=== PATIENT | male | born 1960 | race Caucasian/White ===

== ENCOUNTER 2016-08-11 07:01 | Day surgery (SDC) | payer MEDICARE, MEDICAID ==
[2016-08-10 13:42] LABS: ASPARTATE AMINO TRANSFERASE 17 U/L (15-37); BLOOD UREA NITROGEN 16 mg/dL (7-18)
[~2016-08-11] VITALS: Ht 188 cm; Wt 154.6 kg
[~2016-08-11 07:01] MED LIST: ACET325T14 PO; AMIO200T42 PO; APIX5TAB PO; CHLO25TA PO; ERGO500017 PO; FURO40TA6 PO; LISI5TAB7 PO; MAGN64TA9 PO; MELO-184 PO; METO-99 PO; METO25TA35 PO; METO50TA82 PO; POTA20PA8 PO; POTA20TA89 PO; SIMV20TA3 PO
[2016-08-11] MEDS ORDERED: SODIUM CHLORIDE 0.9% 1,000 ML IV SCH (07:14)
[2016-08-11 07:17] VITALS: BP 127/83
[2016-08-11] MEDS ORDERED: FENTANYL PF 250 MCG/5ML ONE ×2 (07:22→09:46)
[2016-08-11] MEDS ORDERED: MIDAZOLAM 1 MG/ML, 5ML ONE (07:22)
[2016-08-11] MEDS ORDERED: LIDOCAINE 2%, 20ML ONE (08:21)
[2016-08-11] MEDS ORDERED: ISOPROTERENOL 0.2MG/ML, 5ML ONE (08:21)
[2016-08-11] MEDS ORDERED: HEPARIN 1,000 UNITS/ML, 10ML ONE (08:21)
[2016-08-11] MEDS ORDERED: HYDROmorphone 1 MG/ML, 1ML IV PRN (11:00)
[2016-08-11] MEDS ORDERED: ACETAMINOPHEN 325 MG TABLET PO PRN (11:00)
[2016-08-11] MEDS ORDERED: OXYcodone 5 MG/5 ML ORAL.SOL UDC PO PRN (11:00)
[2016-08-11] MEDS ORDERED: FENTANYL PF 100 MCG/2ML IV PRN (11:00)
[2016-08-11] MEDS ORDERED: ONDANSETRON 2MG/ML, 2ML IVPush PRN (11:00)
[2016-08-11] MEDS ORDERED: MIDAZOLAM 1 MG/ML, 2ML IV PRN (11:00)
[2016-08-11] MEDS ORDERED: MEPERIDINE/PF 25MG/0.5ML IVPush PRN (11:00)
[2016-08-11] MEDS ORDERED: FENTANYL PF 100 MCG/2ML ONE (11:26)
[2016-08-11] MEDS ORDERED: OXYcodone 5 MG/5 ML ORAL.SOL UDC ONE (11:26)
[2016-08-11] MEDS ORDERED: DEXAMETHASONE 4 MG/ML, 1ML ONE (15:23)
[2016-08-11] MEDS ORDERED: SUCCINYLCHOLINE 20 MG/ML, 10ML ONE (15:23)
[2016-08-11] MEDS ORDERED: PROPOFOL 10 MG/ML, 20ML ONE (15:23)
[2016-08-11] MEDS ORDERED: ROCURONIUM 10 MG/ML ONE (15:23)
[2016-08-11] MEDS ORDERED: ONDANSETRON 2MG/ML, 2ML ONE (15:23)
== END 2016-08-11 15:12 | disposition home or self-care (01) ==
LOC: OUT 07:01
PROVIDERS: ATTEND Internal Medicine Cardiovascular Disease
DX: I48.3 Typical atrial flutter (principal); I48.91 Unspecified atrial fibrillation; I42.9 Cardiomyopathy, unspecified; E66.9 Obesity, unspecified; Z68.41 Body mass index [BMI] 40.0-44.9, adult; I11.0 Hypertensive heart disease with heart failure; I50.9 Heart failure, unspecified; E78.5 Hyperlipidemia, unspecified; G47.30 Sleep apnea, unspecified
CPT/HCPCS: 36415; 71020; 80053; 85025; 85610; 85730; 93005; 93613; 93621; 93653; C1730; C1731; C1732; C1766; C1894; J0330; J1100; J2250; J2405; J2704; J3010; J3490; J1644

== ENCOUNTER 2016-10-13 09:32 | Emergency (ER) | payer MEDICARE, MEDICAID ==
[~2016-10-13] VITALS: Ht 188 cm; Wt 168.0 kg
[2016-10-13] MEDS ORDERED: POTA10TA PO (09:53)
[2016-10-13] MEDS ORDERED: SODIUM CHLORIDE 0.9% 1,000ML IVBOLUS ONE (10:00)
[2016-10-13] MEDS ORDERED: SODIUM CHLORIDE FLUSH 10ML SYR IVF ONE (10:00)
[2016-10-13] MEDS ORDERED: PLEASE ENTER HEIGHT AND WEIGHT MC SCH (10:00)
[2016-10-13 10:01] LABS: ASPARTATE AMINO TRANSFERASE 25 U/L (15-37); BLOOD UREA NITROGEN 15 mg/dL (7-18)
[2016-10-13 10:04] LABS: IS PT STATUS REG ER OR PRE ER? YES
[2016-10-13 10:46] VITALS: BP 118/78
== END 2016-10-13 11:35 | disposition home or self-care (01) ==
LOC: ED 09:58
DX: I48.2 Chronic atrial fibrillation (principal); I11.0 Hypertensive heart disease with heart failure; I50.9 Heart failure, unspecified
CPT/HCPCS: 36415; 71010; 80053; 83880; 84484; 85025; 85610; 93005; 96360; 96361; 99285; J7030

== ENCOUNTER 2016-10-14 09:43 | Day surgery (SDC) | payer MEDICARE, MEDICAID ==
[2016-10-13 11:27] VITALS: BP 142/56
[~2016-10-14] VITALS: Ht 188 cm; Wt 154.6 kg
[~2016-10-14 09:43] MED LIST changes: +POTA10TA PO
[2016-10-14] MEDS ORDERED: SODIUM CHLORIDE 0.9% 1,000 ML IV SCH (10:52)
[2016-10-14] MEDS ORDERED: FENTANYL PF 250 MCG/5ML ONE (11:21)
[2016-10-14] MEDS ORDERED: MIDAZOLAM 1 MG/ML, 5ML ONE (11:22)
[2016-10-14] MEDS ORDERED: HEPARIN 1,000 UNITS/ML, 10ML ONE (11:25)
[2016-10-14] MEDS ORDERED: BUPIVACAINE 0.25% ONE (11:25)
[2016-10-14] MEDS ORDERED: PROTAMINE SULFATE 10 MG/ML, 5ML ONE (11:25)
[2016-10-14] MEDS ORDERED: ISOPROTERENOL 0.2MG/ML, 5ML ONE (11:25)
[2016-10-14] MEDS ORDERED: ONDANSETRON 2MG/ML, 2ML ONE (11:30)
[2016-10-14] MEDS ORDERED: PROPOFOL 10 MG/ML, 50ML ONE (11:30)
[2016-10-14] MEDS ORDERED: SUCCINYLCHOLINE 20 MG/ML, 10ML ONE (11:30)
[2016-10-14] MEDS ORDERED: DEXAMETHASONE 4 MG/ML, 1ML ONE (11:30)
[2016-10-14] MEDS ORDERED: ADENOSINE 6 MG/2 ML ONE (12:22)
[2016-10-14] MEDS ORDERED: FENTANYL PF 100 MCG/2ML ONE ×2 (12:54→14:11)
[2016-10-14] MEDS ORDERED: ONDANSETRON 2MG/ML, 2ML IVPush PRN (14:00)
[2016-10-14] MEDS ORDERED: FENTANYL PF 100 MCG/2ML IV PRN (14:00)
[2016-10-14] MEDS ORDERED: PROMETHAZINE 25 MG/ML, 1ML IV PRN (14:00)
[2016-10-14] MEDS ORDERED: MIDAZOLAM 1 MG/ML, 2ML IV PRN (14:00)
[2016-10-14] MEDS ORDERED: ACETAMINOPHEN 325 MG TABLET PO PRN (14:00)
[2016-10-14] MEDS ORDERED: ACETAMINOPHEN 650 MG/20.3 ML UDC ONE (14:11)
[2016-10-14] MEDS ORDERED: METOPROLOL TARTRATE 50 MG TABLET PO SCH (18:00)
[2016-10-14] MEDS ORDERED: APIXABAN 5 MG TABLET PO SCH (21:00)
[2016-10-14] MEDS ORDERED: FUROSEMIDE 40 MG TABLET PO SCH (21:00)
[2016-10-15] MEDS ORDERED: AMIODARONE 200 MG TABLET PO SCH (09:00)
[2016-10-15] MEDS ORDERED: POTASSIUM CHLORIDE 20 MEQ TAB.ER.PRT PO SCH (09:00)
[2016-10-15] MEDS ORDERED: LISINOPRIL 5 MG TABLET PO SCH (09:00)
[2016-10-15] MEDS ORDERED: MAGNESIUM CHLORIDE 64 MG TABLET.DR PO SCH (09:00)
[2016-10-17] MEDS ORDERED: ERGOCALCIFEROL 50,000 UNIT CAPSULE PO SCH (09:00)
== END 2016-10-14 19:21 | disposition home or self-care (01) ==
LOC: CACL 09:43 → 5SO 15:11 → CACL 19:21
PROVIDERS: ATTEND Internal Medicine Cardiovascular Disease
DX: I48.3 Typical atrial flutter (principal); I48.91 Unspecified atrial fibrillation; I11.0 Hypertensive heart disease with heart failure; I50.9 Heart failure, unspecified; E78.5 Hyperlipidemia, unspecified; I42.9 Cardiomyopathy, unspecified; Z79.01 Long term (current) use of anticoagulants; Z98.890 Other specified postprocedural states; Z88.0 Allergy status to penicillin; Z88.6 Allergy status to analgesic agent; G47.33 Obstructive sleep apnea (adult) (pediatric)
CPT/HCPCS: 36415; 85730; 93005; 93613; 93621; 93623; 93653; C1730; C1731; C1894; C2630; J0330; J1100; J2250; J2405; J2704; J3010; J3490; J0153; J1644; J2720

== ENCOUNTER → 2017-10-26 | Outpatient (CLI) | payer MEDICARE, MEDICAID ==
[~2017-10-26] MED LIST changes: -MAGN64TA9 PO; +MAGNESIUM DR64 MG PO; -MELO-184 PO; +MELO15TA24 PO; +OMNIPAQUE 350 MG/ML, 150 ML BOTTLE ONE; +POTA20PA25 PO; -POTA20PA8 PO
[2017-10-26 14:03] LABS: CREATININE 1.02 mg/dL (0.7-1.3)
== END | disposition home or self-care (01) ==
LOC: RAD 13:34
PROVIDERS: ATTEND Nurse Practitioner Family
DX: R10.9 Unspecified abdominal pain (principal)
CPT/HCPCS: 36415; 74177; 82565; Q9967

== ENCOUNTER → 2018-04-22 | Outpatient (CLI) | payer MEDICARE, MEDICAID ==
[~2018-04-22] MED LIST changes: +GADOBUTROL 15 MMOL/15 ML VIAL ONE; -OMNIPAQUE 350 MG/ML, 150 ML BOTTLE ONE
== END | disposition home or self-care (01) ==
LOC: RAD 14:44
PROVIDERS: ATTEND Nurse Practitioner Family
DX: K76.0 Fatty (change of) liver, not elsewhere classified (principal); R16.0 Hepatomegaly, not elsewhere classified; R10.9 Unspecified abdominal pain
CPT/HCPCS: 74183; A9585

== ENCOUNTER 2018-06-14 08:01 | Day surgery (SDC) | payer MEDICARE, MEDICAID ==
[~2018-06-14] VITALS: Ht 189.2 cm; Wt 170.8 kg
[~2018-06-14 08:01] MED LIST changes: -GADOBUTROL 15 MMOL/15 ML VIAL ONE
[2018-06-14] MEDS ORDERED: LACTATED RINGERS 1,000 ML IV SCH (08:33)
[2018-06-14] MEDS ORDERED: FENTANYL PF 100 MCG/2ML ONE ×3 (08:41→09:37)
[2018-06-14] MEDS ORDERED: MIDAZOLAM 1 MG/ML, 2ML ONE (08:41)
[2018-06-14 09:05] VITALS: BP 171/81
[2018-06-14] MEDS ORDERED: AMIO100T4 PO (09:05)
[2018-06-14] MEDS ORDERED: METO50TA82 PO (09:05)
[2018-06-14] MEDS ORDERED: FURO20TA3 PO (09:05)
[2018-06-14] MEDS ORDERED: POTA20PA25 PO (09:05)
[2018-06-14] MEDS ORDERED: LISI5TAB7 PO (09:05)
[2018-06-14] MEDS ORDERED: SUCCINYLCHOLINE 20 MG/ML, 10ML ONE (09:15)
[2018-06-14] MEDS ORDERED: ONDANSETRON 2MG/ML, 2ML ONE (09:15)
[2018-06-14] MEDS ORDERED: DEXAMETHASONE 4 MG/ML, 1ML ONE (09:15)
[2018-06-14] MEDS ORDERED: PROPOFOL 10 MG/ML, 20ML ONE (09:15)
[2018-06-14] MEDS ORDERED: FENTANYL PF 100 MCG/2ML IV PRN (10:30)
[2018-06-14] MEDS ORDERED: KETOROLAC 30 MG/1 ML IV PRN (10:30)
[2018-06-14] MEDS ORDERED: HALOPERIDOL 5 MG/ML IV PRN (10:30)
[2018-06-14] MEDS ORDERED: OXYcodone 5 MG/5 ML ORAL.SOL UDC PO PRN (10:30)
[2018-06-14] MEDS ORDERED: ACETAMINOPHEN 325 MG TABLET PO PRN (10:30)
[2018-06-14] MEDS ORDERED: hydrALAzine 20 MG/ML, 1ML IV PRN (10:30)
[2018-06-14] MEDS ORDERED: MEPERIDINE/PF 25MG/0.5ML IVPush PRN (10:30)
[2018-06-14] MEDS ORDERED: LORazepam 2 MG/ML, 1ML IVPush PRN (10:30)
[2018-06-14] MEDS ORDERED: PROMETHAZINE 25 MG/ML, 1ML IV PRN (10:30)
[2018-06-14] MEDS ORDERED: HYDROmorphone 2 MG/ML, 1ML IVPush PRN (10:30)
== END 2018-06-14 13:52 | disposition home or self-care (01) ==
LOC: OUT 08:01
PROVIDERS: ATTEND Internal Medicine Gastroenterology
DX: Z12.11 Encounter for screening for malignant neoplasm of colon (principal); K63.5 Polyp of colon; K52.89 Other specified noninfective gastroenteritis and colitis; K62.89 Other specified diseases of anus and rectum; Z88.0 Allergy status to penicillin
CPT/HCPCS: 45380; 45385; 88305; J0330; J1100; J2250; J2405; J2704; J3010; J7120

== ENCOUNTER 2018-10-06 10:39 | Emergency (ER) | payer MEDICARE, MEDICAID ==
[~2018-10-06] VITALS: Ht 188 cm; Wt 171.5 kg
[~2018-10-06 10:39] MED LIST changes: +AMIO100T4 PO; +FURO20TA3 PO
--- NOTE | 2018-10-06 11:40 | NUR ---
AT BEDSIDE FOR US
--- NOTE | 2018-10-06 12:18 | NUR ---
IV ESTABLISHED FOR CT. PT RESTING IN [facility], CALL LIGHT WITHIN REACH
[2018-10-06 12:22] LABS: INTERNATIONAL NORMALIZED RATIO 1.03 (0.93-1.1); PROTHROMBIN TIME 10.8 Seconds (9.6-11.5)
[2018-10-06 12:23] LABS: BASOPHILS # (AUTO) 0.04 x10^3/uL (0-0.1); BASOPHILS % (AUTO) 0 % (0-1); EOSINOPHILS # (AUTO) 0.06 x10^3/uL (0-0.4); EOSINOPHILS % (AUTO) 1 % (1-7); LYMPHOCYTES # (AUTO) 1.73 x10^3/uL (1-3.4); LYMPHOCYTES % (AUTO) 18 % (22-44); MD NO; MEAN CORPUSCULAR HGB CONC 33.9 g/dL (33.2-36.2); MEAN CORPUSCULAR VOLUME 103.2 fL (81-97); MEAN PLATELET VOLUME 8.8 fL (7.4-10.4); MONOCYTES # (AUTO) 0.75 x10^3/uL (0.2-0.8); MONOCYTES % (AUTO) 8 % (2-9); NEUTROPHILS % (AUTO) 73 % (42-75); PLATELET COUNT 195 x10^3/uL (130-400); RED CELL DISTRIBUTION WIDTH 13.3 % (9.4-14.8)
[2018-10-06 12:24] LABS: ALANINE AMINOTRANSFERASE 53 U/L (12-78); ANION GAP 7 mmol/L (5-15); CALCIUM 9.2 mg/dL (8.5-10.1); CHLORIDE 102 mmol/L (98-107); CREATININE 1.16 mg/dL (0.7-1.3)
[2018-10-06 12:28] LABS: ALKALINE PHOSPHATASE 88 U/L (45-117); BILIRUBIN,TOTAL 2.2 mg/dL (0.2-1.0); TROPONIN I < 0.015 ng/mL (0.000-0.045)
--- NOTE | 2018-10-06 13:08 | NUR ---
PT RETURNED FROM CT
[2018-10-06] MEDS ORDERED: OMNIPAQUE 350 MG/ML, 100ML BOTTLE ONE (13:12)
[2018-10-06 13:15] VITALS: BP 138/68
--- NOTE | 2018-10-06 14:02 | NUR ---
PT 92% ON RA WHILE AMBULATING. PT UP FOR RECHECK
== END 2018-10-06 14:45 | disposition home or self-care (01) ==
LOC: ED 14:16
DX: R10.84 Generalized abdominal pain (principal); I48.91 Unspecified atrial fibrillation; I10 Essential (primary) hypertension; I11.0 Hypertensive heart disease with heart failure; I50.9 Heart failure, unspecified
CPT/HCPCS: 36415; 71045; 74177; 80053; 83690; 83880; 84484; 85025; 85610; 85730; 93005; 99284; Q9967

== ENCOUNTER 2019-08-03 06:17 | Observation (INO) | payer MEDICARE, MEDICAID ==
[~2019-08-03] VITALS: Ht 188 cm; Wt 156.8 kg
[~2019-08-03 06:17] MED LIST changes: +SIMV20TA19 PO; -SIMV20TA3 PO
[2019-08-03] MEDS ORDERED: SODIUM CHLORIDE 0.9% 1,000 ML IV SCH (06:43)
[2019-08-03 06:52] VITALS: BP 137/76
[2019-08-03] MEDS ORDERED: CYCL-259 PO (06:57)
[2019-08-03] MEDS ORDERED: CHOL10003 PO (06:57)
[2019-08-03] MEDS ORDERED: CYAN250013 PO (06:57)
[2019-08-03 07:23] LABS: BASOPHILS # (AUTO) 0.02 x10^3/uL (0-0.1); BASOPHILS % (AUTO) 0 % (0-1); EOSINOPHILS # (AUTO) 0.14 x10^3/uL (0-0.4); EOSINOPHILS % (AUTO) 2 % (1-7); LYMPHOCYTES # (AUTO) 1.22 x10^3/uL (1-3.4); LYMPHOCYTES % (AUTO) 16 % (22-44); MD NO; MEAN CORPUSCULAR HEMOGLOBIN 33.5 pg (27.5-34.5); MEAN CORPUSCULAR HGB CONC 33.6 g/dL (33.2-36.2); MEAN CORPUSCULAR VOLUME 99.8 fL (81-97); MEAN PLATELET VOLUME 8.4 fL (7.4-10.4); MONOCYTES # (AUTO) 0.66 x10^3/uL (0.2-0.8); MONOCYTES % (AUTO) 8 % (2-9); NEUTROPHILS # (AUTO) 5.82 x10^3/uL (1.8-6.8); NEUTROPHILS % (AUTO) 74 % (42-75); PLATELET COUNT 228 x10^3/uL (130-400); RED BLOOD COUNT 4.66 x10^6/uL (4.38-5.82); RED CELL DISTRIBUTION WIDTH 13.8 % (9.4-14.8)
[2019-08-03 07:24] LABS: ALANINE AMINOTRANSFERASE 26 U/L (12-78); ALBUMIN 3.6 g/dL (3.4-5.0); ANION GAP 9 mmol/L (5-15); CALCIUM 9.9 mg/dL (8.5-10.1); CHLORIDE 108 mmol/L (98-107); CREATININE 1.04 mg/dL (0.7-1.3)
[2019-08-03 07:26] LABS: ALKALINE PHOSPHATASE 86 U/L (45-117); TOTAL PROTEIN 8.2 g/dL (6.4-8.2)
[2019-08-03] MEDS ORDERED: MIDAZOLAM 1 MG/ML, 2ML ONE (08:03)
[2019-08-03] MEDS ORDERED: FENTANYL PF 250 MCG/5ML ONE (08:03)
[2019-08-03] MEDS ORDERED: PROPOFOL 10 MG/ML, 20ML ONE (08:05)
[2019-08-03] MEDS ORDERED: ROCURONIUM 10MG/ML,5ML ONE (08:05)
[2019-08-03] MEDS ORDERED: SUCCINYLCHOLINE 20 MG/ML, 10ML ONE (08:05)
[2019-08-03] MEDS ORDERED: ONDANSETRON 2MG/ML, 2ML ONE (08:05)
[2019-08-03] MEDS ORDERED: DEXAMETHASONE 4 MG/ML, 1ML ONE (08:08)
[2019-08-03] MEDS ORDERED: LIDOCAINE 2%, 20ML ONE (08:37)
[2019-08-03] MEDS ORDERED: HEPARIN 1,000 UNITS/ML, 10ML ONE ×3 (09:30)
[2019-08-03] MEDS: APIXABAN 5 MG TABLET PO SCH ×2 (10:00→20:06)
[2019-08-03] MEDS ORDERED: APIXABAN 5 MG TABLET ONE (10:12)
[2019-08-03] MEDS ORDERED: ACETAMINOPHEN 325 MG TABLET PO PRN (10:30)
[2019-08-03] MEDS ORDERED: HALOPERIDOL 5 MG/ML IV PRN (10:30)
[2019-08-03] MEDS ORDERED: HYDROmorphone 2 MG/ML, 1ML IVPush PRN (10:30)
[2019-08-03] MEDS ORDERED: EPHEDRINE 50 MG/ML, 1ML IVPush PRN (10:30)
[2019-08-03] MEDS ORDERED: OXYcodone 5 MG/5 ML ORAL.SOL UDC PO PRN (10:30)
[2019-08-03] MEDS ORDERED: MEPERIDINE/PF 25MG/ML,1ML IVPush PRN (10:30)
[2019-08-03] MEDS ORDERED: PROMETHAZINE 25 MG/ML, 1ML IV PRN (10:30)
[2019-08-03] MEDS ORDERED: DIAZEPAM 5 MG/ML, 2ML IVPush PRN (10:30)
[2019-08-03] MEDS ORDERED: ONDANSETRON ODT 8 MG PO PRN (10:30)
[2019-08-03] MEDS ORDERED: hydrALAzine 20 MG/ML, 1ML IV PRN (10:30)
[2019-08-03] MEDS ORDERED: ONDANSETRON 2MG/ML, 2ML IV PRN (10:30)
[2019-08-03] MEDS ORDERED: PROMETHAZINE 12.5 MG SUPP PR PRN (10:30)
[2019-08-03] MEDS ORDERED: LABETALOL 5MG/ML, 20ML IV PRN (10:30)
[2019-08-03] MEDS ORDERED: FENTANYL PF 100 MCG/2ML IV PRN (10:30)
[2019-08-03] MEDS ORDERED: ALBUTEROL SULFATE 2.5 MG/3 ML NPPB PRN (10:30)
[2019-08-03] MEDS ORDERED: MIDAZOLAM 1 MG/ML, 2ML IV PRN (10:30)
[2019-08-03 11:09] VITALS: BP 123/83
[2019-08-03 13:28] VITALS: BP 117/74
[2019-08-03 18:53] VITALS: BP 118/76
[2019-08-03] MEDS: METOPROLOL TARTRATE 25 MG TAB PO SCH (20:06)
[2019-08-03] MEDS: FUROSEMIDE 40 MG TABLET PO SCH (20:06)
[2019-08-03] MEDS ORDERED: CYCLOBENZAPRINE 10 MG TABLET PO SCH (21:00)
[2019-08-04 01:04] VITALS: BP 110/66
[2019-08-04 07:50] VITALS: BP 133/80
[2019-08-04] MEDS: APIXABAN 5 MG TABLET PO SCH (07:55)
[2019-08-04] MEDS: FUROSEMIDE 40 MG TABLET PO SCH (07:56)
[2019-08-04] MEDS: METOPROLOL TARTRATE 25 MG TAB PO SCH (08:00)
[2019-08-04] MEDS ORDERED: APIX5TAB PO (08:41)
[2019-08-04] MEDS ORDERED: CHOLECALCIFEROL 1,000 UNIT TABLET PO SCH (09:00)
[2019-08-04] MEDS ORDERED: POTASSIUM CHLORIDE 20 MEQ PACKET PO SCH (09:00)
[2019-08-04] MEDS ORDERED: CYANOCOBALAMIN 1,000 MCG TABLET PO SCH (09:00)
[2019-08-04] MEDS ORDERED: CYCLOBENZAPRINE 10 MG TABLET PO SCH (09:00)
== END 2019-08-04 11:30 | disposition home or self-care (01) ==
LOC: CACL 06:17 → ORIP 10:31 → 5SO 11:02
PROVIDERS: ADMIT Internal Medicine Cardiovascular Disease; ATTEND Internal Medicine Cardiovascular Disease
DX: I48.92 Unspecified atrial flutter (principal); I48.91 Unspecified atrial fibrillation; E66.01 Morbid (severe) obesity due to excess calories; Z68.42 Body mass index [BMI] 45.0-49.9, adult; Z88.0 Allergy status to penicillin; Z79.899 Other long term (current) drug therapy; I10 Essential (primary) hypertension
CPT/HCPCS: 36415; 71046; 80053; 85025; 85347; 93306; 93613; 93655; 93656; 93657; 93662; C1730; C1732; C1759; C1766; C1893; C1894; G0378; J0330; J1100; J1644; J2250; J2405; J2704; J3010; J3490